=== PATIENT | female | born 1985 | race Caucasian/White ===

== ENCOUNTER 2021-07-14 18:40 | Emergency (ER) | payer MEDICAID ==
[~2021-07-14] VITALS: Ht 160 cm; Wt 85.9 kg
[~2021-07-14 18:40] MED LIST: LIDOcaine 1% W/epiNEPHrine 1:100,000 20ml vial ONE
[2021-07-14] MEDS ORDERED: TETanus/Pertussis (Acell)/Diphther VAC/PF (Tdap-Adult) 0.5ml syringe IMVAC ONE (18:55)
[2021-07-14] MEDS ORDERED: bacitracin 15gm ointment TP ONE (18:55)
[2021-07-14 20:14] VITALS: BP 131/93
== END 2021-07-14 20:18 | disposition home or self-care (01) ==
LOC: ER 18:41
DX: S51.812A Laceration without foreign body of left forearm, initial encounter (principal); R62.50 Unspecified lack of expected normal physiological development in childhood; F32.9 Major depressive disorder, single episode, unspecified; R45.1 Restlessness and agitation; Z88.5 Allergy status to narcotic agent; Z88.8 Allergy status to other drugs, medicaments and biological substances; Z20.3 Contact with and (suspected) exposure to rabies; X58.XXXA Exposure to other specified factors, initial encounter; Y93.89 Activity, other specified; Y92.89 Other specified places as the place of occurrence of the external cause; Y99.8 Other external cause status
CPT/HCPCS: 12004; 90471; 90715; 99283; J3490

== ENCOUNTER 2021-09-19 13:51 | Emergency (ER) | payer MEDICAID ==
[~2021-09-19] VITALS: Ht 160 cm; Wt 85.0 kg
[2021-09-19 15:29] VITALS: BP 118/87
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
== END 2021-09-19 16:53 | disposition home or self-care (01) ==
LOC: ER 13:52
DX: S63.91XA Sprain of unspecified part of right wrist and hand, initial encounter (principal); S60.221A Contusion of right hand, initial encounter; Z88.5 Allergy status to narcotic agent; Z88.8 Allergy status to other drugs, medicaments and biological substances; W25.XXXA Contact with sharp glass, initial encounter; Y93.89 Activity, other specified; Y92.89 Other specified places as the place of occurrence of the external cause; Y99.8 Other external cause status
CPT/HCPCS: 73130; 99283

== ENCOUNTER → 2022-05-26 | Emergency (ER) | payer MEDICAID ==
[~2022-05-26] VITALS: Ht 157.5 cm; Wt 84.0 kg
[~2022-05-26] MED LIST changes: +DIPH25CA83 PO; -LIDOcaine 1% W/epiNEPHrine 1:100,000 20ml vial ONE; +dexamethasone sod phosphate 10mg/ml inj IM STA; +diphenhydrAMINE 50 mg/ml inj IM ONE
[2022-05-26 19:39] VITALS: BP 153/103
== END | disposition home or self-care (01) ==
LOC: ER 19:27
DX: T78.40XA Allergy, unspecified, initial encounter (principal); Z88.5 Allergy status to narcotic agent; Z88.8 Allergy status to other drugs, medicaments and biological substances; Z79.899 Other long term (current) drug therapy
CPT/HCPCS: 96372; 99284; J1100; J1200

== ENCOUNTER 2022-06-25 20:00 | Emergency (ER) | payer MEDICAID ==
[~2022-06-25] VITALS: Ht 160 cm; Wt 77.0 kg
[~2022-06-25 20:00] MED LIST changes: -dexamethasone sod phosphate 10mg/ml inj IM STA; -diphenhydrAMINE 50 mg/ml inj IM ONE
[2022-06-25 23:22] VITALS: BP 155/95
== END 2022-06-25 23:24 | disposition home or self-care (01) ==
LOC: ER 20:00
DX: T23.272A Burn of second degree of left wrist, initial encounter (principal); E78.00 Pure hypercholesterolemia, unspecified; E03.9 Hypothyroidism, unspecified; F31.9 Bipolar disorder, unspecified; F20.9 Schizophrenia, unspecified; Z88.8 Allergy status to other drugs, medicaments and biological substances; Z88.5 Allergy status to narcotic agent; Z79.899 Other long term (current) drug therapy; X08.8XXA Exposure to other specified smoke, fire and flames, initial encounter; Y93.89 Activity, other specified; Y92.89 Other specified places as the place of occurrence of the external cause; Y99.8 Other external cause status
CPT/HCPCS: 99282

== ENCOUNTER 2025-02-07 16:20 | Emergency (ER) | payer MEDICAID ==
[~2025-02-07] VITALS: Ht 160 cm; Wt 94.7 kg
[2025-02-07 16:29] VITALS: TEMP 98.5
--- NOTE | 2025-02-07 17:11 | ELECTROCARDIOGRAPH REPORT ---
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
[2025-02-07 17:36] LABS: MEAN PLATELET VOLUME 9.4 FL (7.4-10.4); RED CELL DISTRIBUTION WIDTH 14.4 % (11.5-14.5)
[2025-02-07] MEDS: normal saline 1000ML IV soln IVB ONE (18:16)
[2025-02-07 18:20] LABS: CREATININE 1.00 MG/DL (0.40-0.90); TOTAL CARBON DIOXIDE 24.8 MMOL/L (24-32); eCRCL 62 ML/MIN; eGFR 62 ML/MIN
--- NOTE | 2025-02-07 19:10 | Physician Documentation ---
History of Present Illness ~ Chief Complaint: Syncope Stated Complaint: SYNCOPE Time Seen by MD: 16:25 Primary Medical Doctor: UNSURE Source: patient Mode of Arrival: EMS Exam Limitations: no limitations HPI 40-year-old female who [facility] a [facility] brought in by ambulance due to syncopal episode. Staff at correction states that patient was not feeling very well over the past 24 hours and so she skipped breakfast and had not had much to eat or drink over the past 24 hours and then she went outside in the heat and when she came back inside that she fainted. Patient states that she remembers waking up on the ground. She did not hit her head. Patient states when she woke up on the ground in the kitchen she was not nauseated and that she quickly realized what had happened. She states right now she feels fine. She denies any symptoms whatsoever. No cp, sob, abdominal pain, vomiting, headache, lightheadedness. Medication Reconciliation Allergies: Coded Allergies: codeine (Verified Allergy, Intermediate, NAUSEA, 07/14/21) methylphenidate (Verified Allergy, Intermediate, PSYCH, 07/14/21) Opioids-Meperidine and Related (Unverified Allergy, Unknown, 05/26/22) UNK fentanyl (Unverified Allergy, Unknown, UNK, 05/26/22) morphine (Unverified Allergy, Unknown, UNK, 05/26/22) procaine (Unverified Allergy, Unknown, UNK, 05/26/22) Scheduled Diphenhydramine Hcl (Benadryl), 1 CAP PO Q12H Past Medical History Past Medical History: High Cholesterol, Hypothyroidism, *PSYCH*, Bipolar, Depression, Schizophrenia Past Surgical History: noncontributory Alcohol Use: None Drug Use: none Lives In: Home Review of Systems All Other Systems at this time: Reviewed and Negative Physical Exam Vital Signs: Temperature: 98.5, Source: Oral, Heart Rate: 116, Respiratory Rate: 16, BP: 109/79, Pulse Oximetry: 97, Weight: 94.700 Oxygen Flow Rate: 0 Physical Exam GENERAL: Alert, no acute distress. HEENT: NCAT, EOMI, PERRL, normal oropharynx, dry oral mucosa. NECK: Supple, trachea midline. CARDIAC: Regular rhythm, elevated rate, no murmurs, rubs, or gallops. Equal distal pulses. No lower extremity edema, cap refill less than 2 seconds. RESPIRATORY: Equal breath sounds, clear to auscultation bilaterally, no respiratory distress. GASTROINTESTINAL: Non distended, soft, nontender, No guarding or rebound. MUSCULOSKELETAL: Normal range of motion, nontender, no swelling. Normal gait. NEUROLOGICAL: Awake, alert, and oriented x 3. cn 2-12 intact. SKIN: Warm/dry, no pallor, no rash. PSYCH: Alert and appropriate. Affect congruent with mood. Speech is clear. Good eye contact. Progress Results/Orders Results/Orders Completed Orders - KRYSTLE CHAVIRA Electrocardiogram (02/07/25 16:26) Cbc/Diff (02/07/25 17:00) BMP (02/07/25 17:27) Normal Saline 1000ml (0.9% Sodium Chlori (02/07/25 17:50) Vital Signs 02/07/25 02/07/25 02/07/25 02/07/25 16:29 17:50 18:05 18:31 Temp 98.5 Pulse 124 116 Resp 22 22 16 B/P (MAP) 111/80 109/79 (89) Pulse Ox 97 97 O2 Flow Rate 0 0 02/07/25 19:16 Pulse 108 Resp 16 B/P (MAP) 125/96 Pulse Ox 99 Laboratory Tests Test 02/07/25 17:15 02/07/25 18:00 White Blood Count 10.8 Red Blood Count 5.09 Hemoglobin 15.4 Hematocrit 45.3 H Mean Corpuscular Volume 89.1 Mean Corpuscular Hemoglobin 30.2 Mean Corpuscular Hemoglobin Concent 33.9 Red Cell Distribution Width 14.4 Platelet Count 179 Mean Platelet Volume 9.4 Neutrophils (%) (Auto) 89.4 H Lymphocytes (%) (Auto) 4.4 L Monocytes (%) (Auto) 5.5 Eosinophils (%) (Auto) 0.6 Basophils (%) (Auto) 0.1 Neutrophils # (Auto) 9.7 H Lymphocytes # (Auto) 0.5 L Monocytes # (Auto) 0.6 Eosinophils # (Auto) 0.1 Basophils # (Auto) 0.0 CBC Comment Chemistry Comments Sodium Level 140 Potassium Level 3.9 Chloride Level 105 Carbon Dioxide Level 24.8 Anion Gap 10 Blood Urea Nitrogen 13 Creatinine 1.00 H Estimated GFR/1.73 m2 62 BUN/Creatinine Ratio 13.0 Glucose Level 120 H Calcium Level 8.8 Albumin 3.6 Medical Decision Making Differential Dx:Considerations: Include: anemia, CVA, cerebral occlusion, cerebral thrombosis, dehydration, dysrhythmia, electrolyte disorder, encephalopathy, hypoglycemia, hypovolemia, labyrinthitis, Meniere's disease, myocardial infarction, pulmonary embolus, TIA, vasovagal, VBI, vertigo central, vertigo peripheral, vestibular neuronitis Additional Information Patient's labs are normal, she has no headache and there was no trauma to her head. Seizure considered; however, no trauma to tongue, no loss of bowel or bladder control and patient had no post ictal period Departure Impression: Primary Impression: Syncope Qualified Codes: R55 - Syncope and collapse Condition: Stable Discharge Instructions: Syncope, Adult Additional Instructions: f/u with pcp return to er if dizziness or any other concerning symptoms Referrals: NO PRIMARY CARE PROVIDER (PCP) Education Educated: Patient Educated regarding: diagnosis, treatment, need for follow up Signature Scribe Signature: x Attestation: KRYSTLE Cortes Feb 07, 2025 19:10
[2025-02-07 19:16] VITALS: BP 125/96; PULSE 108; RESP 16; O2SAT 99
== END 2025-02-07 19:24 | disposition home or self-care (01) ==
LOC: ER 16:20
DX: R55 Syncope and collapse (principal); E03.9 Hypothyroidism, unspecified; E78.00 Pure hypercholesterolemia, unspecified; F31.9 Bipolar disorder, unspecified; F20.9 Schizophrenia, unspecified; Z88.5 Allergy status to narcotic agent; Z88.8 Allergy status to other drugs, medicaments and biological substances
CPT/HCPCS: 36415; 80048; 85025; 93005; 96360; 99284; J7030